=== PATIENT | female | born 1995 | race Caucasian/White ===

== ENCOUNTER 2024-09-25 14:03 | Emergency (ER) | payer SELFPAY ==
[2024-09-25] VITALS (8 sets, daily range): BP systolic 100–138; BP diastolic 61–108; PULSE 65–92; RESP 16–18; TEMP 36.6–36.9; O2SAT 95–100; BMI 21.1
--- NOTE | 2024-09-25 14:26 | ED_ITS ---
Discharge Plan Disposition Patient Disposition: Home, Self-Care Prescriptions Prescriptions: New ondansetron 4 mg tablet,disintegrating 4 mg PO Q6H PRN (Reason: nausea and vomiting) Qty: 10 0RF Referrals Follow up/Referrals: Provider,Referral, [Primary Care Provider] - See instructions Activity Restrictions/Add. Instructions Additional Instructions/Restrictions: Call your family doctor to establish care for this visit to the emergency department and schedule follow-up within 48 hours to ensure improvement. If you have any worsening of your condition or any other concerning signs or symptoms, return to the emergency department or your primary care doctor for further evaluation. Zofran every 6 hours under the tongue to dissolve for vomiting Clinical Impressions Clinical Impression: Cyclical vomiting, Acute dehydration, Alcohol abuse, Cannabinoid hyperemesis syndrome, Metabolic acidosis Instructions Patient Instructions: DI for Diarrhea and Traveler's Diarrhea -- Adult, DI for Diarrhea and Traveler's Diarrhea -- Child, DI for Nausea -- Adult, DI for Nausea -- Child Print Language Print Language: Icelandic Discharge ED Provider: Garfield Carey General Adult HPI <Mohan Stern MD - Last Filed: 09/25/24 15:26> General Chief complaint: Nausea/Vomiting/Diarrhea Stated complaint: Shivers, Vomitting, Dehydrated Time Seen by Provider: 09/25/24 14:14 Mode of Arrival: Ambulatory Source of Information: Patient Description of Symptoms (Recalled from ER Triage Doc. by RN): pt reports drinking 6 beers and 1 shot last night. starrted vomiting @ 10 this morning. and is unable to hold down anything. pt denies being a daily drinker. History of Present Illness HPI narrative: Patient is a 29-year-old female presenting today with refractory nausea and vomiting. No significant abdominal pain associated with this. No changes in bowel movements specifically no diarrhea. No dysuria frequency urgency hematuria vaginal bleeding vaginal discharge etc. Patient does have a history of heavy binge drinking on the weekends but does not drink regularly has no history of withdrawal does not have dependency from historic standpoint. Drinks 6 beers and 2 shots of whiskey last night. But this is what she normally drinks on the weekends. Patient also has been smoking very heavily marijuana over the last several weeks. Has not tried a warm hot shower. Related Data Previous Rx's ?Medication ?Instructions ?Recorded ondansetron 4 mg disintegrating 4 mg PO Q6H PRN nausea and 09/25/24 tablet vomiting #10 tabs Allergies Allergy/AdvReac Type Severity Reaction Status Date / Time acetaminophen (From [place]) Allergy Hives Verified 09/25/24 14:15 hydrocodone (From [place]) Allergy Hives Verified 09/25/24 14:15 PFSH <Mohan Stern MD - Last Filed: 09/25/24 15:26> PFSH Disclaimer: The information contained in this section may have been updated after the patient was seen, as this information can be updated by other users. Social History (Updated 09/25/24 @ 15:26 by Mohan Stern MD) Smoking Status: Current every day smoker alcohol intake: never current occupational status: other Travel in the last 8 weeks: None <Mohan Stern MD - Last Filed: 09/25/24 15:26> ROS Obtained: Yes All systems reviewed & no additional complaints except as documented Physical Exam <Mohan Stern MD - Last Filed: 09/25/24 15:26> General General appearance: other (Actively retching) Respiratory Respiratory exam: Present normal lung sounds bilaterally Cardiovascular Cardiovascular exam: Present regular rate Abdominal Exam Abdominal exam: Present soft; Absent distention or tenderness Neurological Exam Neurological exam: Present alert and oriented X3 Medical Decision Making <Mohan Stern MD - Last Filed: 09/25/24 15:26> Medical Records Screening: Per USPSTF and CDC recommendations, given the prevalence of disease in our region, it is our hospital?s policy to screen for HIV and viral Hepatitis for all patients aged 18 and over and those with ongoing risk factors. Ajith Inquiry Pt receiving controlled substance: No Vital Signs: 09/25/24 14:10 09/25/24 14:30 09/25/24 14:41 Temperature 98.4 F Temperature Source Oral Pulse Rate 85 66 Pulse Rate [Right] 92 H Respiratory Rate 18 Blood Pressure 136/92 H 138/108 H Blood Pressure [Right Arm] 111/74 Blood Pressure Mean Blood Pressure Mean [Right Arm] 86 02 Sat by Pulse Oximetry 97 100 100 Oxygen Delivery Method Room Air Room Air 09/25/24 15:30 09/25/24 16:00 09/25/24 16:30 Temperature Temperature Source Pulse Rate 65 67 71 Pulse Rate [Right] Respiratory Rate Blood Pressure 125/72 109/64 L 100/61 L Blood Pressure [Right Arm] Blood Pressure Mean 89 79 69 Blood Pressure Mean [Right Arm] 02 Sat by Pulse Oximetry 100 100 Oxygen Delivery Method Room Air 09/25/24 17:00 Temperature Temperature Source Pulse Rate 81 Pulse Rate [Right] Respiratory Rate Blood Pressure 107/68 L Blood Pressure [Right Arm] Blood Pressure Mean 74 Blood Pressure Mean [Right Arm] 02 Sat by Pulse Oximetry Oxygen Delivery Method Lab Data Lab results reviewed: Yes I reviewed the patient's lab results. Lab Results 09/25/24 14:25: WBC 22.7 H*, RBC 4.94, Hgb 16.2, Hct 45.0, MCV 91.1, MCH 32.8 H, MCHC 36.0 H, RDW 13.4, Plt Count 289, MPV 9.5, Neut % (Auto) 89.8 H, Lymph % (Auto) 5.6 L, Parker % (Auto) 3.5, Eos % (Auto) 0.0 L, Baso % (Auto) 0.5, Neut # (Auto) 20.4 H, Lymph # (Auto) 1.3, Parker # (Auto) 0.8, Eos # (Auto) 0.0, Baso # (Auto) 0.1, Total Counted 100, Neutrophils % (Manual) 90 H, Lymphocytes % (Manual) 8 L, Monocytes % (Manual) 2, Platelet Estimate Normal, RBC Morphology Normal, Sodium 142, Potassium 4.2, Chloride 112 H, Carbon Dioxide 10 L, Anion Gap 24.2 H, BUN 12, Creatinine 0.70, Estimated Creat Clear 114, Estimated GFR 98, Est GFR ( Amer) 119, Glucose 81, Calcium 9.4, Magnesium 1.9, Total Bilirubin 0.7, AST 41 H, ALT 30, Alkaline Phosphatase 73, Total Protein 7.8, A lbumin 5.3 H, Globulin 2.5, Albumin/Globulin Ratio 2.1 H, Lipase 75, P lasma/Serum Alcohol 25 H 09/25/24 14:45: Urine Color Yellow, Urine Appearance Clear, Urine pH 5.5, Ur Specific [place] 1.024, Urine Protein Negative, Urine Glucose (UA) Negative, Urine Ketones 3+, Urine Blood Trace-i, Urine Nitrate Negative, Urine Bilirubin Negative, Urine Urobilinogen 0.2, Ur Leukocyte Esterase Trace, Urine RBC 10-20, Urine WBC 5-10, Ur Squamous Epith Cells 50-100, Amorphous Sediment 2+, Urine Bacteria 3+, Urine Mucus 1+, Urine HCG, Qual Negative 09/25/24 14:54: Urine Opiates Screen Negative, Urine Methadone Screen Negative, Ur Barbituates Screen Negative, Ur Phencyclidine Scrn Negative, Ur Amphetamines Screen Negative, U Benzodiazepines Scrn Negative, Urine Cocaine Screen Negative, U Marijuana (THC) Screen Positive H 09/25/24 16:27: VBG pH 7.36, VBG pCO2 29.9 L, VBG pO2 67.2 H, VBG HCO3 16.5 L, V BG Total CO2 17.4 L, VBG O2 Saturation 93.6 H, VBG Base Excess -8.9 L, VBG Lactic Acid 2.5 H 09/25/24 14:25 09/25/24 14:25 Orders (Tests/Meds): ED MEDICATIONS Discontinued Medications Generic Name Dose Route Start Last Admin Trade Name Freq PRN Reason Stop Dose Admin Droperidol 2.5 mg 09/25/24 15:22 09/25/24 15:44 Droperidol 5mg/2ml Vial IV 09/25/24 15:23 2.5 mg ONCE ONE Administration Lactated Ringer's 1,000 mls @ 999 mls/hr 09/25/24 14:30 09/25/24 14:30 Lactated Ringer's 1000 Ml Bag IV 09/25/24 15:30 999 mls/hr .Q1H1M BEATRICE Administration Lactated Ringer's 1,000 mls @ 999 mls/hr 09/25/24 15:30 09/25/24 15:44 Lactated Ringer's 1000 Ml Bag IV 09/25/24 16:30 999 mls/hr .Q1H1M BEATRICE Administration Ondansetron HCl 4 mg 09/25/24 14:23 09/25/24 14:30 Ondansetron 4mg/2ml Vial IV 09/25/24 14:24 4 mg ONCE ONE Administration ORDERS Category Date Time Status CBC w/Auto Diff [Complete Blood Count Auto Diff] Stat Lab 09/25/24 14:25 Completed CMP [Comprehensive Metabolic Panel] Stat Lab 09/25/24 14:25 Completed Ethanol [Ethyl Alcohol] Stat Lab 09/25/24 14:25 Completed Lipase Stat Lab 09/25/24 14:25 Completed Magnesium Stat Lab 09/25/24 14:25 Completed UA [Urinalysis and Microscopic] Stat Lab 09/25/24 14:45 Completed UDS [Drug Screen,Urine] Stat Lab 09/25/24 14:54 Completed Urine , HCG Qual. Stat Lab 09/25/24 14:45 Completed Urine Culture Stat Micro 09/25/24 14:45 Received VBG [Venous Blood Gas] Stat RT 09/25/24 16:27 Completed Medical Decision Narrative: 29-year-old female above history and physical abdominal exam is benign at the moment I do not feel that this is consistent with a surgical pathology. She has been drinking heavily also has been smoking marijuana heavily most likely this is cannabinoid hyperemesis will initiate IV fluids and Zofran. I may give her droperidol if she is not improving after this first dose of antiemetics. Labs and electrolytes are pending. Will reassess. Reassessment 3:24 PM patient feeling somewhat better but still significantly nauseated. 500 cc of fluid have been instilled at the moment I have ordered another liter of fluids she is profoundly dehydrated with significant metabolic acidosis and elevated anion gap. Patient is been placed in ED observation status. Serial abdominal exams are still benign she does have a significant leukocytosis but I do not suspect there is any intra-abdominal pathology. I still suspect this is a constellation of symptoms including alcohol abuse and cannabinoid hyperemesis. Care will be transitioned to Dr. Carey at 3:30 PM. <Garfield Carey MD - Last Filed: 09/25/24 18:01> Vital Signs: 09/25/24 14:10 09/25/24 14:30 09/25/24 14:41 Temperature 98.4 F Temperature Source Oral Pulse Rate 85 66 Pulse Rate [Right] 92 H Respiratory Rate 18 Blood Pressure 136/92 H 138/108 H Blood Pressure [Right Arm] 111/74 Blood Pressure Mean Blood Pressure Mean [Right Arm] 86 02 Sat by Pulse Oximetry 97 100 100 Oxygen Delivery Method Room Air Room Air 09/25/24 15:30 09/25/24 16:00 09/25/24 16:30 Temperature Temperature Source Pulse Rate 65 67 71 Pulse Rate [Right] Respiratory Rate Blood Pressure 125/72 109/64 L 100/61 L Blood Pressure [Right Arm] Blood Pressure Mean 89 79 69 Blood Pressure Mean [Right Arm] 02 Sat by Pulse Oximetry 100 100 Oxygen Delivery Method Room Air 09/25/24 17:00 Temperature Temperature Source Pulse Rate 81 Pulse Rate [Right] Respiratory Rate Blood Pressure 107/68 L Blood Pressure [Right Arm] Blood Pressure Mean 74 Blood Pressure Mean [Right Arm] 02 Sat by Pulse Oximetry Oxygen Delivery Method Lab Data Lab Results 09/25/24 14:25: WBC 22.7 H*, RBC 4.94, Hgb 16.2, Hct 45.0, MCV 91.1, MCH 32.8 H, MCHC 36.0 H, RDW 13.4, Plt Count 289, MPV 9.5, Neut % (Auto) 89.8 H, Lymph % (Auto) 5.6 L, Parker % (Auto) 3.5, Eos % (Auto) 0.0 L, Baso % (Auto) 0.5, Neut # (Auto) 20.4 H, Lymph # (Auto) 1.3, Parker # (Auto) 0.8, Eos # (Auto) 0.0, Baso # (Auto) 0.1, Total Counted 100, Neutrophils % (Manual) 90 H, Lymphocytes % (Manual) 8 L, Monocytes % (Manual) 2, Platelet Estimate Normal, RBC Morphology Normal, Sodium 142, Potassium 4.2, Chloride 112 H, Carbon Dioxide 10 L, Anion Gap 24.2 H, BUN 12, Creatinine 0.70, Estimated Creat Clear 114, Estimated GFR 98, Est GFR ( Amer) 119, Glucose 81, Calcium 9.4, Magnesium 1.9, Total Bilirubin 0.7, AST 41 H, ALT 30, Alkaline Phosphatase 73, Total Protein 7.8, A lbumin 5.3 H, Globulin 2.5, Albumin/Globulin Ratio 2.1 H, Lipase 75, P lasma/Serum Alcohol 25 H 09/25/24 14:45: Urine Color Yellow, Urine Appearance Clear, Urine pH 5.5, Ur Specific [place] 1.024, Urine Protein Negative, Urine Glucose (UA) Negative, Urine Ketones 3+, Urine Blood Trace-i, Urine Nitrate Negative, Urine Bilirubin Negative, Urine Urobilinogen 0.2, Ur Leukocyte Esterase Trace, Urine RBC 10-20, Urine WBC 5-10, Ur Squamous Epith Cells 50-100, Amorphous Sediment 2+, Urine Bacteria 3+, Urine Mucus 1+, Urine HCG, Qual Negative 09/25/24 14:54: Urine Opiates Screen Negative, Urine Methadone Screen Negative, Ur Barbituates Screen Negative, Ur Phencyclidine Scrn Negative, Ur Amphetamines Screen Negative, U Benzodiazepines Scrn Negative, Urine Cocaine Screen Negative, U Marijuana (THC) Screen Positive H 09/25/24 16:27: VBG pH 7.36, VBG pCO2 29.9 L, VBG pO2 67.2 H, VBG HCO3 16.5 L, V BG Total CO2 17.4 L, VBG O2 Saturation 93.6 H, VBG Base Excess -8.9 L, VBG Lactic Acid 2.5 H Orders (Tests/Meds): ED MEDICATIONS Discontinued Medications Generic Name Dose Route Start Last Admin Trade Name Jean Marieq PRN Reason Stop Dose Admin Droperidol 2.5 mg 09/25/24 15:22 09/25/24 15:44 Droperidol 5mg/2ml Vial IV 09/25/24 15:23 2.5 mg ONCE ONE Administration Lactated Ringer's 1,000 mls @ 999 mls/hr 09/25/24 14:30 09/25/24 14:30 Lactated Ringer's 1000 Ml Bag IV 09/25/24 15:30 999 mls/hr .Q1H1M BEATRICE Administration Lactated Ringer's 1,000 mls @ 999 mls/hr 09/25/24 15:30 09/25/24 15:44 Lactated Ringer's 1000 Ml Bag IV 09/25/24 16:30 999 mls/hr .Q1H1M BEATRICE Administration Ondansetron HCl 4 mg 09/25/24 14:23 09/25/24 14:30 Ondansetron 4mg/2ml Vial IV 09/25/24 14:24 4 mg ONCE ONE Administration ORDERS Category Date Time Status CBC w/Auto Diff [Complete Blood Count Auto Diff] Stat Lab 09/25/24 14:25 Completed CMP [Comprehensive Metabolic Panel] Stat Lab 09/25/24 14:25 Completed Ethanol [Ethyl Alcohol] Stat Lab 09/25/24 14:25 Completed Lipase Stat Lab 09/25/24 14:25 Completed Magnesium Stat Lab 09/25/24 14:25 Completed UA [Urinalysis and Microscopic] Stat Lab 09/25/24 14:45 Completed UDS [Drug Screen,Urine] Stat Lab 09/25/24 14:54 Completed Urine , HCG Qual. Stat Lab 09/25/24 14:45 Completed Urine Culture Stat Micro 09/25/24 14:45 Received VBG [Venous Blood Gas] Stat RT 09/25/24 16:27 Completed Medical Decision Narrative: 29-year-old female above history and physical abdominal exam is benign at the moment I do not feel that this is consistent with a surgical pathology. She has been drinking heavily also has been smoking marijuana heavily most likely this is cannabinoid hyperemesis will initiate IV fluids and Zofran. I may give her droperidol if she is not improving after this first dose of antiemetics. Labs and electrolytes are pending. Will reassess. Reassessment 3:24 PM patient feeling somewhat better but still significantly nauseated. 500 cc of fluid have been instilled at the moment I have ordered another liter of fluids she is profoundly dehydrated with significant metabolic acidosis and elevated anion gap. Patient is been placed in ED observation status. Serial abdominal exams are still benign she does have a significant leukocytosis but I do not suspect there is any intra-abdominal pathology. I still suspect this is a constellation of symptoms including alcohol abuse and cannabinoid hyperemesis. Care will be transitioned to Dr. Carey at 3:30 PM. Cherry: I assumed primary responsibility for this patient after signout from previous physician. On my evaluation, patient looks and feels much better. She is nontachycardic, normotensive, has 0 complaints, no abdominal pain. Abdominal exam is benign. Independent interpretation of workup with leukocytosis, likely stress degranulation of neutrophils. Patient's chemistry concerning for metabolic acidosis with bicarb of 10, anion gap of 24. VBG was sent for further evaluation. Lipase negative, hCG negative. Urine positive for THC, serum alcohol level 25. VBG with compensated metabolic acidosis normal pH at 7.36, but bicarb low at 17 and CO2 low at 30. Lactate 2.5. Urinalysis with ketonuria but no evidence of urinary tract infection. Repeat evaluation, patient states that she feels much better and is ready to go home. I feel this is appropriate. Concerns about labs were brought up, patient states that she feels comfortable coming back if she does get worse and I feel she is reliable. Because patient at baseline without signs or symptoms of clinical decompensation, deemed appropriate for discharge. Results were relayed to patient who voiced understanding and were agreeable to outpatient management and follow up. I discussed my clinical impression with patient and answered all questions. At this time, the evidence for any other entities in the differential is insufficient to warrant any further testing or ED observation. This was explained as well. Advisory was given that persistent or worsening symptoms require further evaluation. I confirmed the understanding of this discussion. Critical Care <J Juan Luis Stern MD - Last Filed: 09/25/24 15:26> Critical Care Time Critical Care Time: No
[2024-09-25] MEDS: ONDANSETRON 4MG/2ML VIAL 4 MG IV (14:30)
[2024-09-25] MEDS: LACTATED RINGERS 1000ML 1,000 ML 999 ML IV ×2 (14:30→15:44)
[2024-09-25 14:43] LABS: Basophils # 0.1 K/mm3 (0-0.2); Basophils % 0.5 % (0.1-2.0); Hemoglobin 16.2 g/dL (12.2-16.2); Lymphocytes # 1.3 K/mm3 (0.7-4.5); Lymphocytes % 5.6 % (10-50); Mean Corpuscular Hemoglobin 32.8 pg (27.0-31.2); Mean Corpuscular Volume 91.1 fl (81-99); Mean Platelet Volume 9.5 fl (7.4-10.4); Monocytes # 0.8 K/mm3 (0.1-1.0); Monocytes % 3.5 % (1.7-9.3); Neutrophils # 20.4 K/mm3 (1.8-7.8); Neutrophils % 89.8 % (37.0-80.0); Nucleated Red Blood Cells # 0 10^3/uL; Nucleated Red Blood Cells % 0 %; Platelet Count 289 K/mm3 (142-424); Red Blood Count 4.94 M/mm3 (4.20-5.40); Red Cell Distribution Width 13.4 % (11.5-17.5); Red Cell Distribution Width-SD 45.1 fL; White Blood Count 22.7 K/mm3 (4.8-10.8)
[2024-09-25 14:45] LABS: MANUAL DIFFERENTIAL MANUAL DIFFERENTIAL (MANUAL DIFF)
[2024-09-25 14:49] LABS: Chloride 112 mmol/L (98-107)
[2024-09-25 14:50] LABS: Albumin Level 5.3 g/dl (3.5-5.0); Potassium 4.2 mmoL/L (3.5-5.1); Sodium 142 mmol/L (136-145)
[2024-09-25 14:52] LABS: Alanine Aminotransferase 30 U/L (12-78); Alkaline Phosphatase 73 U/L (38-126); Anion Gap 24.2 mEq/L (5-15); Aspartate Amino Transferase 41 U/L (14-36); Bilirubin,Total 0.7 mg/dl (0.2-1.3); Blood Urea Nitrogen 12 mg/dl (7-17); Creatinine Clearance Estimated 114 mL/min (50-200); Estimated Glomerular Filt Rate 98 ml/min (>60); Ethyl Alcohol 25 mg/dl (0-10); GFR (African American) 119 ML/MIN (>60)
[2024-09-25 14:53] LABS: Calcium 9.4 mg/dl (8.4-10.2); Glucose 81 mg/dl (74-100); Lipase 75 U/L (23-300); Magnesium 1.9 mg/dl (1.6-2.3)
[2024-09-25 14:54] LABS: Carbon Dioxide 10 mmol/L (22.0-30.0)
[2024-09-25 15:11] LABS: Lymphocytes % 8 % (10-50); Monocytes % 2 % (2-9); Neutrophils % 90 % (42-76); Platelet Estimate Normal; RBC Morphology Normal; Total Cells Counted 100
[2024-09-25 15:11] LABS: Amphetamine/Metha Screen,Urine Negative ng/ml (<1000)
[2024-09-25 15:12] LABS: Barbiturates Screen,Urine Negative ng/ml (<200); Methadone Screen,Urine Negative ng/ml (<300)
[2024-09-25 15:13] LABS: Cannabinoid Screen,Urine Positive ng/ml (<50)
[2024-09-25 15:14] LABS: Cocaine Screen,Urine Negative ng/ml (<300)
[2024-09-25 15:15] LABS: Phencyclidine Screen,Urine Negative ng/ml (<25)
[2024-09-25 15:26] LABS: Benzodiazepines Screen,Urine Negative ng/ml (<200)
--- NOTE | 2024-09-25 15:30 | ECG_ITS ---
APPROVED REPORT Exam: Resting ECG HR:70 bpm ECG Measurements Heart Rate 70 AXES MS 131 P 76 QRSd 113 QRS 84 QT 444 T 69 QTc 464 Conclusion SINUS RHYTHM WITH MARKED SINUS ARRHYTHMIA POSSIBLE LEFT ATRIAL ENLARGEMENT [-0.1mV P-WAVE IN V1/V2] INCOMPLETE RIGHT BUNDLE BRANCH BLOCK [90+ ms QRS DURATION, TERMINAL R IN V1/V2, 40+ ms S IN I/aVL/V4/V5/V6] BORDERLINE ECG UNCONFIRMED REPORT Electronically signed by : LATRICE VILLA, 09/27/2024 03:48:21
[2024-09-25 15:40] LABS: Urine Pregnancy, HCG Qual. Negative (Negative)
[2024-09-25 15:40] LABS: Opiate Screen,Urine Negative ng/ml (<300)
[2024-09-25] MEDS: droPERidol 5MG/2ML VIAL 2.5 MG IV (15:44)
[2024-09-25 16:15] LABS: Microscopic, Urine URINE MICROSCOPIC (MICROSCOPIC)
[2024-09-25 16:22] LABS: Albumin/Globulin Ratio 2.1 (1.1-1.8); Globulin 2.5 g/dL (1.3-3.2); Total Protein,Serum 7.8 g/dl (6.3-8.2)
[2024-09-25 16:22] LABS: Appearance,Urine CLEAR (Clear); Bilirubin,Urine Negative (Negative); Blood, Urine TRACE-I (Negative); Color,Urine YELLOW (Yellow); Glucose,Urine (UA) Negative (Negative); Ketones,Urine 3+ (Negative); Leukocyte Esterase,Urine TRACE (Negative); Nitrate,Urine Negative (Negative); PH,Urine 5.5 (5.0-8.5); Protein,Urine Negative (Negative); Urobilinogen,Urine 0.2 EU/dl (0.2)
[2024-09-25 16:23] LABS: Specific Gravity, Urine 1.024 (1.005-1.030)
--- NOTE | 2024-09-25 16:28 | PC.NURSE ---
pt reports much improvement of symptoms @ this time.
[2024-09-25 16:31] LABS: VBG Base Excess -8.9 mmol/L (-2.4-2.3); VBG HCO3 16.5 mmol/L (23-30); VBG Oxygen Saturation 93.6 % (50-70); VBG PCO2 29.9 mmol/L (35-51); VBG PH 7.36 mmol/L (7.31-7.41); VBG PO2 67.2 mmol/L (28-40); VBG Total CO2 17.4 mmol/L (23-27)
[2024-09-25 16:32] LABS: Lactate Venous 2.5 mmol/L (0.4-2.0)
[2024-09-25 16:39] LABS: Amorphous Sediment,Urine 2+ /lpf; Bacteria,Urine 3+ /lpf; Mucus,Urine 1+ /lpf; Squamous Epithelial Cell,Urine 50-100 #/hpf (0-5)
--- NOTE | 2024-09-25 17:35 | PC.NURSE ---
pt tolerating po intake well.
[2024-09-25 20:32] LABS: Reflex Lactic Add Lactic Reflex
== END 2024-09-25 18:09 | disposition home or self-care (01) ==
PROVIDERS: Student in an Organized Health Care Education/Training Program; Emergency Provider Emergency Medicine
DX: E86.0 Dehydration (principal); R11.15 Cyclical vomiting syndrome unrelated to migraine; E87.21 Acute metabolic acidosis; F12.90 Cannabis use, unspecified, uncomplicated; F10.10 Alcohol abuse, uncomplicated
CPT/HCPCS: 80053; 80307; 80320; 81001; 81025; 82803; 83690; 83735; 85007; 85025; 85027; 87086; 93005; 96361; 96374; 96375; 99284; J1790; J2405; J7120